=== PATIENT | female | born 1970 | race Two or more races ===

== ENCOUNTER 2019-12-08 01:34 | Emergency (ER) | payer SELFPAY ==
[~2019-12-08] VITALS: Ht 157.5 cm; Wt 68.0 kg
[2019-12-08] MEDS ORDERED: OFLOXACIN5 ML BOTH EARS (01:59)
[2019-12-08 02:00] VITALS: BP 112/72
[2019-12-08] MEDS ORDERED: CORTISPORIN EAR10 ML BOTH EARS (03:06)
--- NOTE | 2019-12-08 04:34 | Emergency Room Report ---
History of Present Illness General Chief Complaint: Earache Source: Patient Present Illness HPI 49-year-old female presents with bilateral ear pain x1 day. Started after taking a bath. Pain is dull, 7 out of 10, nonradiating. Denies fevers or chills. Denies cough. Denies sore throat. Denies sick contacts or recent travel. No other aggravating relieving factors. Denies any other associated symptoms Allergies: Coded Allergies: No Known Allergies (Unverified , 12/08/19) COVID-19 Screening Contact w/high risk pt: No Experienced COVID-19 symptoms?: No COVID-19 Testing performed FOOD AND DRUG RESEARCH SCIENTIST: No Patient History Past Medical History: asthma Past Surgical History: none Pertinent Family History: none Social History: Denies: smoking, alcohol use, drug use Last Menstrual Period: n/a Now: No Immunizations: UTD Reviewed Nursing Documentation: PMH: Agreed; PSxH: Agreed Nursing Documentation-PMH Past Medical History: No History, Except For Hx Asthma: Yes Review of Systems All Other Systems: negative except mentioned in HPI Physical Exam Vital Signs Date Time Temp Pulse Resp B/P (MAP) Pulse Ox O2 Delivery O2 Flow Rate FiO2 12/08/19 01:37 97.5 95 18 119/76 (90) 97 Room Air Sp02 EP Interpretation: reviewed, normal General Appearance: no apparent distress, alert, GCS 15, non-toxic Head: normocephalic, atraumatic Eyes: bilateral eye normal inspection, bilateral eye PERRL ENT: hearing grossly normal, normal pharynx, no angioedema, normal voice, other - bilateral canal erythematous. TTP Neck: full range of motion, supple/symm/no masses Respiratory: chest non-tender, lungs clear, normal breath sounds, speaking full sentences Cardiovascular #1: regular rate, rhythm, no edema Cardiovascular #2: 2+ carotid (R), 2+ carotid (L), 2+ radial (R), 2+ radial (L), 2+ dorsalis pedis (R), 2+ dorsalis pedis (L) Gastrointestinal: normal bowel sounds, non tender, soft, non-distended, no guarding, no rebound Rectal: deferred Genitourinary: normal inspection, no CVA tenderness Musculoskeletal: back normal, normal range of motion, gait/station normal, non- tender Neurologic: alert, motor strength/tone normal, oriented x3, sensory intact, responsive, speech normal Psychiatric: judgement/insight normal, memory normal, mood/affect normal, no suicidal/homicidal ideation Reflexes: 3+ bicep (R), 3+ bicep (L), 3+ tricep (R), 3+ tricep (L), 3+ knee (R), 3+ knee (L) Lymphatic: no adenopathy Medical Decision Making Diagnostic Impression: Primary Impression: Otitis externa Qualified Codes: H60.503 - Unspecified acute noninfective otitis externa, bilateral ER Course Hospital Course 49 yo M presents to ED c/o bilateral ear pain Differential diagnoses include: TM perforation, otitis externa, otitis media Clinical course Patient placed on stretcher. After initial history, physical exam reveals a female in no acute distress. There is erythema noted in bilateral ear canals. The eardrums are unremarkable. Discussed findings with patient. Afebrile, nontoxic-appearing. Will treat for otitis externa with otic drops. Safe for discharge with close outpatient follow-up. I will provide referrals Diagnosis - otitis externa Stable and discharged to home with Rx ofloxacin otic. Followup with PMD. Return to ED if symptoms recur or worsen Last Vital Signs Date Time Temp Pulse Resp B/P (MAP) Pulse Ox O2 Delivery O2 Flow Rate FiO2 12/08/19 02:00 97.8 89 18 112/72 97 Room Air Status: improved Disposition: HOME, SELF-CARE Condition: Stable Scripts Neomycin/Polymyxin B Sulf/Hc* (CORTISPORIN EAR SOLUTION*) 10 Ml Solution 4 DROP BOTH EARS QID for 7 Days, #10 ML 0 Refills Prov: Lalo Tilley MD 12/08/19 Ofloxacin (OFLOXACIN) 5 Ml Drops 10 DROP BOTH EARS DAILY for 7 Days, ML Prov: Lalo Tilley MD 12/08/19 Referrals: NOT CHOSEN IPA/,REFERRING (PCP) [facility]urea [facility] Patient Instructions: Otitis Externa, [id number] Lalo Tilley MD Dec 08, 2019 04:34
== END 2019-12-08 02:00 | disposition home or self-care (01) ==
LOC: EMR 01:55
DX: H60.503 Unspecified acute noninfective otitis externa, bilateral (principal)
CPT/HCPCS: 99282